=== PATIENT | male | born 1955 | race Hispanic/Latino ===

== ENCOUNTER 2018-10-01 09:32 | Emergency (ER) | payer MEDICAID, OTHER ==
[2018-10-01 09:50] VITALS: BMI 25.8
[2018-10-01] MEDS ORDERED: Tmp-Smz 800 mg-160 mg DS Tab PO STA (10:47)
[2018-10-01] MEDS ORDERED: Tmp-Smz 800 mg-160 mg DS Tab ONE (10:54)
[2018-10-01] MEDS ORDERED: Lidocaine 2% Inj (20ml) INFIL ONE (11:52)
[2018-10-01] MEDS ORDERED: Lidocaine 2% MPF (5 ml) Inj ONE (12:00)
[2018-10-01] MEDS ORDERED: Bacitracin 500 Units/gm Oint Foilpak UD TOP ONE (12:37)
[2018-10-01] MEDS ORDERED: Bacitracin 500 Units/gm Oint Foilpak UD ONE (12:48)
[2018-10-01 13:10] VITALS: BP 170/84; PULSE 73; RESP 20; TEMP 98.7; O2SAT 98
--- NOTE | 2018-10-01 13:23 | C.PDOC ---
History Of Present Illness Pt injured his finger with equipment just [employer]NA[employer]. Time Seen by Provider: 10/01/18 10:42 Chief Complaint (Nursing): Abnormal Skin Integrity History Per: Patient Onset/Duration Of Symptoms: Laceration Current Symptoms Are (Timing): Still Present Location Of Injury: Right: Hand (Index finger) Quality Of Symptoms: Painful Severity: Moderate Additional History Per: Prior Records Past Medical History Reviewed: Historical Data, Nursing Documentation, Vital Signs Vital Signs: Last Vital Signs Temp 98.7 F 10/01/18 13:09 Pulse 73 10/01/18 13:09 Resp 20 10/01/18 13:09 BP 170/84 H 10/01/18 13:09 Pulse Ox 98 10/01/18 13:09 - Medical History PMH: Seizures (since 2016) Family History: States: Unknown Family Hx - Social History Hx Alcohol Use: Yes Hx Substance Use: No - Immunization History Hx Tetanus Toxoid Vaccination: Yes (2016) Hx Influenza Vaccination: No Hx Pneumococcal Vaccination: No Review Of Systems Except As Marked, All Systems Reviewed And Found Negative. Constitutional: Negative for: Fever, Weakness Cardiovascular: Negative for: Chest Pain Respiratory: Negative for: Shortness of Breath Musculoskeletal: Negative for: Hand Pain Neurological: Negative for: Weakness, Numbness Physical Exam - Physical Exam Appears: Non-toxic, No Acute Distress Skin: Warm, Dry Head: Atraumatic, Normacephalic Eye(s): bilateral: PERRL, EOMI Neck: Normal ROM, Supple Extremity: Normal ROM, Capillary Refill (wnl), Other (Right index finger laceration.) Pulses: Right Radial: Normal Neurological/Psych: Oriented x3, Normal Motor, Normal Sensation ED Course And Treatment O2 Sat by Pulse Oximetry: 98 Pulse Ox Interpretation: Normal - Other Rad Right index finger x-rays X-Ray: Viewed By Me, Read By Radiologist Interpretation: Fracture of distal phalanx. Progress Note: Pt was placed in finger splint. Reassessment Condition: Improved Laceration - Laceration Repair Right index finger Wound Length (In cm): 4 Description Of Wound: Clean, Irregular, Contused Tissue Anesthesia: Lidocaine 2% (Digital block) Wound Examination: Irrigated With Saline, No FB With Wound Exploration, No Tendon Injury With Wound Exploration Wound Closure: Suture Suture Technique And Material Used: Interrupted, Nylon Wound Complexity: Intermediate Disposition Counseled Patient/Family Regarding: Studies Performed, Diagnosis, Need For Followup, Rx Given - Disposition Referrals: Marquis Wilcox MD [Staff Provider] - Disposition: HOME/ ROUTINE Disposition Time: 13:25 Condition: STABLE Additional Instructions: Follow up with a hand specialist within 1 week for further evaluation and treatment. Return to the ER if you develop fever, redness, pus drainage, worsening of symptoms or if you have any other concerns. Prescriptions: Sulfamethoxazole/Trimethoprim [Bactrim DS 800 mg-160 mg] 1 tab PO BID #10 tab Instructions: Common Finger Injuries (DC) - Clinical Impression Clinical Impression: Laceration of finger, right, Finger fracture, right
--- NOTE | 2018-10-01 13:52 | RAD ---
Date of service: 10/01/2018 PROCEDURE: Right Index finger radiographs. HISTORY: s/p injury/laceration, r/o fracture. COMPARISON: None. TECHNIQUE: AP radiograph of the right hand, as well as spot oblique and lateral images of index finger were obtained. FINDINGS: RIGHT INDEX FINGER: Acute, avulsed fracture distal tuft. Remainder of the right hand (as seen on the AP view) grossly intact. JOINTS: Normal. SOFT TISSUES: Soft tissue swelling attests to the acuity of the fracture. No visualized radiopaque foreign body. OTHER FINDINGS: None. IMPRESSION: Acute avulsed fracture distal tuft right 2nd digit.
== END 2018-10-01 13:32 | disposition home or self-care (01) ==
LOC: C.ER 09:32
DX: S61.210A Laceration without foreign body of right index finger without damage to nail, initial encounter (principal); S62.630A Displaced fracture of distal phalanx of right index finger, initial encounter for closed fracture; X58.XXXA Exposure to other specified factors, initial encounter